=== PATIENT | female | born 2000 | race Asian ===

== ENCOUNTER 2024-11-11 20:59 | Emergency (ER) | payer OTHER ==
[~2024-11-11] VITALS: Ht 160 cm; Wt 50.0 kg
[2024-11-11 21:29] VITALS: TEMP 98.4
[2024-11-11 23:00] VITALS: BP 131/82; PULSE 75; RESP 17; O2SAT 95
[2024-11-11] MEDS ORDERED: SULF1TAB42 PO (23:31)
== END 2024-11-11 23:57 | disposition home or self-care (01) ==
LOC: EMS 20:59
DX: L03.031 Cellulitis of right toe (principal); L08.9 Local infection of the skin and subcutaneous tissue, unspecified; Z79.899 Other long term (current) drug therapy
CPT/HCPCS: 99283; Z7502